=== PATIENT | female | born 2000 | race Caucasian/White ===

== ENCOUNTER 2018-10-18 14:02 | Emergency (ER) | payer BC ==
[~2018-10-18] VITALS: Ht 160 cm; Wt 63.5 kg
[2018-10-18 15:02] LABS: BASO % 1 % (0-3); EOS # 0.1 x10^3/uL (0.0-0.7); EOS % 2 % (0-3); HEMATOCRIT 37.2 % (36.0-47.0); HEMOGLOBIN 12.7 g/dL (12.0-15.5); LYMPH % 72 % (24-48); MEAN CORPUSCULAR HEMOGLOBIN 32 pg (25-35); MEAN CORPUSCULAR HGB CONC 34 g/dL (31-37); MEAN CORPUSCULAR VOLUME 92 fL (79-100); MONO # 0.4 x10^3/uL (0.0-1.1); MONO % 7 % (0-9); NEUT % 19 % (31-73); PLATELET COUNT 251 x10^3/uL (140-400); RED BLOOD COUNT 4.03 x10^6/uL (3.50-5.40); RED CELL DISTRIBUTION WIDTH 14.5 % (11.5-14.5); WHITE BLOOD COUNT 5.5 x10^3/uL (4.0-11.0)
[2018-10-18 15:16] LABS: ALBUMIN 3.5 g/dL (3.4-5.0); ALBUMIN/GLOBULIN RATIO 0.9 (1.0-1.7); CALCIUM 8.8 mg/dL (8.5-10.1); CREATININE 0.7 mg/dL (0.6-1.0); GFR 106.7; POTASSIUM 4.1 mmol/L (3.5-5.1); TOTAL BILIRUBIN 0.4 mg/dL (0.2-1.0); TOTAL PROTEIN 7.4 g/dL (6.4-8.2)
[2018-10-18 15:44] LABS: AMPHETAMINE/METHAMPHETAMINE NEG (NEG); BARBITURATES NEG (NEG); BENZODIAZEPINES NEG (NEG); BILIRUBIN,URINE NEG (NEG); CANNABINOIDS POS (NEG); CLARITY,URINE CLEAR; COCAINE NEG (NEG); COLOR,URINE YELLOW; GLUCOSE,URINE NEG (NEG); METHADONE NEG (NEG); OPIATES NEG (NEG); PHENCYCLIDINE NEG (NEG)
[2018-10-18 15:45] LABS: BACTERIA,URINE MOD /HPF (0-FEW); NITRITE,URINE NEG (NEG); RBC,URINE RARE /HPF (0-2); SQUAMOUS EPITHELIAL CELL,UR MOD /LPF; UROBILINOGEN,URINE 0.2 mg/dL (0.2 mg/dL)
[2018-10-18 16:03] LABS: % BANDS 1 % (0-9); % BASOS 1 % (0-3); % EOS 0 % (0-5); % LYMPHS 69 % (24-48); % MONOS 8 % (0-10); % SEGS 21 % (35-66); PLT ESTIMATE ADEQUATE (ADEQUATE)
[2018-10-18 16:04] LABS: PLATELET CLUMP PRESENT
--- NOTE | 2018-10-18 16:28 | PHYS DOC ---
Past History Past Medical History: Asthma, Other (TYRONE ZAIDI Jr., DO) Past Surgical History: No Surgical History (TYRONE ZAIDI Jr., DO) Alcohol Use: None Drug Use: None (TYRONE ZAIDI Jr., DO) Adult General Chief Complaint Chief Complaint: SUICDAL IDEATION [facility] HPI Patient is a 18-year-old female who presents with report of auditory hallucinations, telling her to harm herself. Patient was seen over at the [facility] and was told to come here for mental health evaluation. Counselor guidance Center's indicating that he is planning on filing paperwork for involuntary hold. Patient reportedly had been at another facility last night for same complaint but had safety contracted out.[] (TYRONE ZAIDI Jr., DO) Review of Systems Review of Systems Constitutional: Denies fever or chills [] Respiratory: Denies cough or shortness of breath [] Cardiovascular: No additional information not addressed in HPI [] GI: Denies abdominal pain, nausea, vomiting, bloody stools or diarrhea [] Neurologic: Denies headache, focal weakness or sensory changes [] Psychiatric: Positive suicidal ideation and auditory hallucinations[] All other systems were reviewed and found to be within normal limits, except as documented in this note. (TYRONE ZAIDI Jr., DO) Current Medications Current Medications Current Medications Medications (Trade) Dose Ordered Sig/Sofia Start Time Stop Time Status Last Admin Dose Admin Lorazepam (Ativan Inj) 1 mg 1X ONCE 10/18/18 16:30 10/18/18 16:31 UNV (TYRONE ZAIDI Jr., DO) Allergies Allergies Allergies Coded Allergies Type Severity Reaction Last Updated Verified bupropion Allergy Mild Hives 10/18/18 Yes (TYRONE ZAIDI Jr., DO) Physical Exam Physical Exam Constitutional: Well developed, well nourished, no acute distress, non-toxic appearance. [] HENT: Normocephalic, atraumatic, bilateral external ears normal, oropharynx moist, no oral exudates, nose normal. [] Eyes: PERRLA, EOMI, conjunctiva normal, no discharge. [] Neck: Normal range of motion, no tenderness, supple, no stridor. [] Cardiovascular:Heart rate regular rhythm, no murmur [] Lungs & Thorax: Bilateral breath sounds clear to auscultation [] Abdomen: Bowel sounds normal, soft, no tenderness, no masses, no pulsatile masses. [] Skin: Warm, dry, no erythema, no rash. [] Back: No tenderness, no CVA tenderness. [] Extremities: No tenderness, no cyanosis, no clubbing, ROM intact, no edema. [] Neurologic: Alert and oriented X 3, normal motor function, normal sensory function, no focal deficits noted. [] Psychologic: Affect is very flattened with reported suicidal ideation. [] (TYRONE ZAIDI Jr. DO) Current Patient Data Vital Signs Vital Signs Date Time Temp Pulse Resp B/P (MAP) Pulse Ox O2 Delivery O2 Flow Rate FiO2 10/18/18 16:01 98.2 80 22 124/62 (82) 98 Lab Results Laboratory Tests Test 10/18/18 14:30 10/18/18 15:17 White Blood Count 5.5 x10^3/uL (4.0-11.0) Red Blood Count 4.03 x10^6/uL (3.50-5.40) Hemoglobin 12.7 g/dL (12.0-15.5) Hematocrit 37.2 % (36.0-47.0) Mean Corpuscular Volume 92 fL (79-100) Mean Corpuscular Hemoglobin 32 pg (25-35) Mean Corpuscular Hemoglobin Concent 34 g/dL (31-37) Red Cell Distribution Width 14.5 % (11.5-14.5) Platelet Count 251 x10^3/uL (140-400) Neutrophils (%) (Auto) 19 % (31-73) L Lymphocytes (%) (Auto) 72 % (24-48) H Monocytes (%) (Auto) 7 % (0-9) Eosinophils (%) (Auto) 2 % (0-3) Basophils (%) (Auto) 1 % (0-3) Neutrophils # (Auto) 1.0 x10^3uL (1.8-7.7) L Lymphocytes # (Auto) 4.0 x10^3/uL (1.0-4.8) Monocytes # (Auto) 0.4 x10^3/uL (0.0-1.1) Eosinophils # (Auto) 0.1 x10^3/uL (0.0-0.7) Basophils # (Auto) 0.0 x10^3/uL (0.0-0.2) Segmented Neutrophils % 21 % (35-66) L Band Neutrophils % 1 % (0-9) Lymphocytes % 69 % (24-48) H Monocytes % 8 % (0-10) Eosinophils % 0 % (0-5) Basophils % 1 % (0-3) Platelet Estimate Adequate (ADEQUATE) Platelet Clumps, EDTA Present Sodium Level 138 mmol/L (136-145) Potassium Level 4.1 mmol/L (3.5-5.1) Chloride Level 105 mmol/L (98-107) Carbon Dioxide Level 24 mmol/L (21-32) Anion Gap 9 (6-14) Blood Urea Nitrogen 16 mg/dL (7-20) Creatinine 0.7 mg/dL (0.6-1.0) Estimated GFR (Cockcroft-Gault) 106.7 BUN/Creatinine Ratio 23 (6-20) H Glucose Level 89 mg/dL (70-99) Calcium Level 8.8 mg/dL (8.5-10.1) Total Bilirubin 0.4 mg/dL (0.2-1.0) Aspartate Amino Transferase (AST) 39 U/L (15-37) H Alanine Aminotransferase (ALT) 55 U/L (14-59) Alkaline Phosphatase 76 U/L (46-116) Total Protein 7.4 g/dL (6.4-8.2) Albumin 3.5 g/dL (3.4-5.0) Albumin/Globulin Ratio 0.9 (1.0-1.7) L Ethyl Alcohol Level < 10 mg/dL (0-10) Urine Collection Type Void Urine Color Yellow Urine Clarity Clear Urine pH 6.0 Urine Specific [place] 1.025 Urine Protein Neg (NEG-TRACE) Urine Glucose (UA) Neg mg/dL (NEG) Urine Ketones (Stick) Neg mg/dL (NEG) Urine Blood Neg (NEG) Urine Nitrite Neg (NEG) Urine Bilirubin Neg (NEG) Urine Urobilinogen Dipstick 0.2 mg/dL (0.2 mg/dL) Urine Leukocyte Esterase Neg (NEG) Urine RBC Rare /HPF (0-2) Urine WBC 1-4 /HPF (0-4) Urine Squamous Epithelial Cells Mod /LPF Urine Bacteria Mod /HPF (0-FEW) Urine Mucus Mod /LPF Urine Opiates Screen Neg (NEG) Urine Methadone Screen Neg (NEG) Urine Barbiturates Neg (NEG) Urine Phencyclidine Screen Neg (NEG) Urine Amphetamine/Methamphetamine Neg (NEG) Urine Benzodiazepines Screen Neg (NEG) Urine Cocaine Screen Neg (NEG) Urine Cannabinoids Screen Pos (NEG) Urine Ethyl Alcohol Neg (NEG) (TYRONE ZAIDI Jr. DO) EKG EKG [] (TYRONE ZAIDI Jr., DO) Radiology/Procedures Radiology/Procedures [] (TYRONE ZAIDI Jr., DO) Course & Med Decision Making Course & Med Decision Making Pertinent Labs and Imaging studies reviewed. (See chart for details) Patient moved to room upon arrival was evaluated by ER staff after which a mental health workup was initiated on patient. Patient has been cleared medical ly and patient evaluated by mental health professional. Patient is being placed on involuntary placement and we are awaiting bed placement at [facility], patient is being signed out to the [facility] ER physician, Dr. Guardado, at 6:00 PM. Patient care was again assumed at 6:00 AM on 10/19/2018. Patient is being accepted by Dr. Thomas and will be transported by ground EMS. (TYRONE ZAIDI Jr., DO) Course & Med Decision Making Addendum by Dr. Jenny Guardado at 2249: I seemed care patient at 1800 this evening. The patient is currently awaiting involuntary placement at [facility]. Patient has been cooperative since I have assumed care and mother has been present in the room. Per request, patient was given nicotine patch. Due to concern for anxiety and need for sleep, the patient requested medication to help with this. Patient was given one dose of Zyprexa Zydis 5 mg. We will continue to monitor patient in the emergency department until you have been contacted by OSH regarding availability of a bed, expected to be tomorrow morning. 0550: Patient resting comfortably in bed. No overnight events. Patient awaiting transfer to OSH. Care of patient is being signed out to [facility] ER physician, Dr. Zaidi, at 0600. (JENNY GUARDADO MD) Dragon Disclaimer Dragon Disclaimer This electronic medical record was generated, in whole or in part, using a voice recognition dictation system. (TYRONE ZAIDI Jr., DO) Departure Departure: Impression: Primary Impression: Suicidal ideation Additional Impression: Auditory hallucinations Disposition: 65 XFER TO PSYCH HOSP/UNIT Condition: STABLE Referrals: TIM,MOI A (PCP) Problem Qualifiers TYRONE ZAIDI Jr., DO Oct 18, 2018 16:28 JENNY GUARDADO MD Oct 18, 2018 22:51
[2018-10-18 18:10] LABS: U PREG PATIENT NEGATIVE (NEG)
[2018-10-18] MEDS ORDERED: NICOTINE 21MG PATCH. TD ONE (19:45)
[2018-10-19] MEDS ORDERED: ALPRAZolam 0.25 MG TABLET ONE (09:38)
[2018-10-19] MEDS ORDERED: NICOTINE 14MG PATCH. TD STA (09:55)
[2018-10-19] MEDS ORDERED: ALPRAZolam 0.25 MG TABLET PO ONE (10:00)
[2018-10-19 10:33] VITALS: BP 117/68
== END 2018-10-19 11:10 ==
LOC: ER 14:02
DX: R44.0 Auditory hallucinations (principal); R45.851 Suicidal ideations; J45.909 Unspecified asthma, uncomplicated; Z88.8 Allergy status to other drugs, medicaments and biological substances
CPT/HCPCS: 36415; 80053; 80307; 81001; 81025; 85007; 85025; 87086; 96374; 96376; 99285; G0480; J2060